=== PATIENT | female | born 2000 ===

== ENCOUNTER 2021-06-09 11:16 | Outpatient (CLI) | payer OTHER | END 2021-06-09 12:36 | disposition home or self-care (01) | LOC: LAB 11:16 | DX: D50.8 Other iron deficiency anemias (principal); Z32.00 Encounter for pregnancy test, result unknown; E78.89 Other lipoprotein metabolism disorders; R74.8 Abnormal levels of other serum enzymes; L70.0 Acne vulgaris ==

== ENCOUNTER → 2021-07-09 08:57 | Outpatient (CLI) | payer OTHER | END | disposition home or self-care (01) | LOC: LAB 08:57 | DX: D50.8 Other iron deficiency anemias (principal); Z32.00 Encounter for pregnancy test, result unknown; L70.0 Acne vulgaris; E78.89 Other lipoprotein metabolism disorders; R74.8 Abnormal levels of other serum enzymes ==

== ENCOUNTER 2023-02-11 09:09 | Outpatient (CLI) | payer OTHER | END 2023-02-11 09:10 | disposition home or self-care (01) | LOC: LAB 09:09 | PROVIDERS: ATTEND Student in an Organized Health Care Education/Training Program | DX: Z12.11 Encounter for screening for malignant neoplasm of colon (principal); D64.9 Anemia, unspecified; E03.8 Other specified hypothyroidism; N95.1 Menopausal and female climacteric states; I10 Essential (primary) hypertension; C51.9 Malignant neoplasm of vulva, unspecified; N30.00 Acute cystitis without hematuria; E83.51 Hypocalcemia; A64 Unspecified sexually transmitted disease; N39.0 Urinary tract infection, site not specified; R97.8 Other abnormal tumor markers; R79.89 Other specified abnormal findings of blood chemistry; E55.9 Vitamin D deficiency, unspecified; A60.9 Anogenital herpesviral infection, unspecified ==